=== PATIENT | female | born 1990 | race Caucasian/White ===

== ENCOUNTER 2018-09-14 15:59 | Emergency (ER) | payer MEDICAID ==
[~2018-09-14] VITALS: Ht 157.5 cm; Wt 49.4 kg
[2018-09-14 16:03] VITALS: BP 116/68
--- NOTE | 2018-09-14 16:07 | NUR ---
PT AMB TO BED 2 WITH STEADY GAIT
--- NOTE | 2018-09-14 16:25 | NUR ---
pt C/O 2 SPIDER BITES YESTERDAY TO R FOREARM. ERYTHREMA TO PTS R FOREARM. PT [id number]. PAIN 3/10 WHEN TOUCHED. pt aaox4. denies any fever, no open skin or drainage, itching at the site. er md to see the pt. PMH- DENIES RX- DENIES
--- NOTE | 2018-09-14 17:05 | NUR ---
Patient discharged with v/s stable. Written and verbal after care instructions given and explained. Patient alert, oriented and verbalized understanding of instructions. Ambulatory with steady gait. All questions addressed prior to discharge. ID band removed. Patient advised to follow up with PMD. Rx of CORTIZONE, BENADRYL, KEFLEX given. Patient educated on indication of medication including possible reaction and side effects. Opportunity to ask questions provided and answered.
[2018-09-14 17:10] VITALS: BP 116/68
== END 2018-09-14 17:05 | disposition home or self-care (01) ==
LOC: MED 15:59
DX: L03.113 Cellulitis of right upper limb (principal); L25.9 Unspecified contact dermatitis, unspecified cause
CPT/HCPCS: 99283; Q0163